=== PATIENT | male | born 1990 | race Caucasian/White ===

== ENCOUNTER 2016-11-21 13:18 | Emergency (ER) | payer OTHER ==
[2016-11-21 13:23] VITALS: BP 147/79; PULSE 62; TEMP 98.3; BMI 23.1
--- NOTE | 2016-11-21 14:14 | PDOC ---
History of Present Illness - General Chief Complaint: Injury Stated Complaint: HIT HEAD ON OBJECT Time Seen by Provider: 11/21/16 13:34 History Source: Patient - History of Present Illness Timing/Duration: reports: 1-3 hours Associated Symptoms: reports: nausea/vomiting. denies: loss of consciousness, seizures, sleepy, slurred speech, vision changes Past History - Past Medical History Allergies/Adverse Reactions: Allergies Allergy/AdvReac Type Severity Reaction Status Date / Time Penicillins Allergy Verified 11/21/16 13:24 Home Medications: Ambulatory Orders NK [No Known Home Medication] 11/21/16 Other medical history: NONE - Psycho/Social/Smoking Cessation Hx Anxiety: No Suicidal Ideation: No Smoking History: Never smoked Hx Alcohol Use: No Drug/Substance Use Hx: No Substance Use Type: None Review of Systems - Review of Systems HEENTM: No: Blurred Vision ABD/GI: Yes: Nausea. No: Vomiting Neurological: Yes: Headache, Dizziness. No: Seizure *Physical Exam - Vital Signs Last Vital Signs Temp Pulse Resp BP Pulse Ox 98.3 F 62 20 147/79 99 11/21/16 13:21 11/21/16 13:21 11/21/16 13:21 11/21/16 13:21 11/21/16 13:21 - Physical Exam General Appearance: Yes: Appropriately Dressed. No: Apparent Distress HEENT: positive: EOMI, Normal Voice, Other (atraumatic) Neck: positive: Supple Respiratory/Chest: negative: Respiratory Distress Integumentary: positive: Dry, Warm Neurologic: positive: Fully Oriented, Alert, Normal Mood/Affect, Normal Response , Motor Strength 5/5, Finger to Nose. negative: Facial Droop, Confused, Disoriented Medical Decision Making - Medical Decision Making 11/21/16 14:08 26 yo male, no sig hx, here for evaluation following head injury prior to arrival today. 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 States immediately after impact he felt pain, dizziness and nauseous, all of which has since improved. No vomiting, visual changes or loss of consciousness. Not on any blood thinners. See exam Minor head injury Well cassidy and stable w/ no focal deficits -Dc w/ concussion precautions 11/21/16 14:15 11/21/16 14:17 *DC/Admit/Observation/Transfer Diagnosis at time of Disposition: Closed head injury Qualifiers: Encounter type: initial encounter Qualified Code(s): S09.90XA - Unspecified injury of head, initial encounter - Discharge Dispostion Disposition: HOME Condition at time of disposition: Good - Patient Instructions Printed Discharge Instructions: DI for Closed Head Injury Additional Instructions: There is no evidence of serious injury at this time and it is too early to say that you will have a concussion To avoid worsening of symptoms, please rest for the next 2 days and avoid heavy exercises or too much physical activity. Avoid doing activities that need concentration or a lot of attention if they make you feel worse. Do not drink alcohol while you are still having symptoms If symptoms persists or worsen, return to the ED
== END 2016-11-21 14:16 | disposition home or self-care (01) ==
LOC: JERFT 13:18
DX: S09.8XXA Other specified injuries of head, initial encounter (principal); W22.8XXA Striking against or struck by other objects, initial encounter; Y93.89 Activity, other specified; Y92.89 Other specified places as the place of occurrence of the external cause; Y99.0 Civilian activity done for income or pay
CPT/HCPCS: 99281-25

== ENCOUNTER 2020-06-27 08:27 | Day surgery (SDC) | payer OTHER ==
[2020-06-27] MEDS ORDERED: morphine CARPU-JECT 2 MG/1 ML DISP.SYRIN IVPUSH ONE (08:37)
[2020-06-27] MEDS ORDERED: SODIUM CHLORIDE 0.9% 1000 ML INFUS.BAG IV ONE ×2 (08:37→13:45)
[2020-06-27] MEDS ORDERED: ONDANSETRON 4 MG/2 ML VIAL IVPUSH ONE (08:37)
[2020-06-27] MEDS ORDERED: morphine SULFATE 4 MG/ML VIAL ONE (09:08)
[2020-06-27] MEDS ORDERED: ACETAMINOPHEN 1000 MG/100 ML VIAL (NON FORMULARY) IVPB ONE (09:13)
[2020-06-27] MEDS ORDERED: ACETAMINOPHEN INJECTION 100 ML IVPB ONE (09:16)
[2020-06-27 09:21] LABS: HEMOGLOBIN 14.9 GM/dl (11.7-16.9); WHITE BLOOD COUNT 5.7 K/mm3 (4.0-10.8)
[2020-06-27 09:23] LABS: EPITHELIAL CELLS FEW /hpf
[2020-06-27 09:26] LABS: HEMATOCRIT 43.6 % (35.4-49); MCH 29.6 pg (25.7-33.7); MCHC 34.2 g/dl (32.0-35.9); MEAN CELL VOLUME 86.6 fl (80-96); MEAN PLT VOLUME 8.5 fl (7.5-11.1); PLATELET COUNT 244 K/MM3 (134-434); RBC 5.04 M/mm3 (4.00-5.60); RDW 11.9 % (11.9-15.9)
[2020-06-27] MEDS ORDERED: TAMSULOSIN HCL 0.4 MG CAP PO ONE (09:33)
[2020-06-27 09:36] LABS: ALBUMIN 4.3 g/dl (3.4-5.0); BILIRUBIN,TOTAL 0.9 mg/dl (0.2-1); CALCIUM 9.3 mg/dl (8.5-10); CREATININE 1.1 mg/dl (0.55-1.3); POTASSIUM 4.1 mmol/L (3.5-5.1); TOT PROT 6.6 g/dl (6.4-8.2)
[2020-06-27 10:10] LABS: PLATELET ESTIMATE ADEQUATE
[2020-06-27] MEDS ORDERED: KETOROLAC TROMETHAMINE 30 MG/1 ML VIAL IVPUSH ONE (10:59)
[2020-06-27] MEDS ORDERED: TAMSULOSIN HCL 0.4 MG CAP ONE (11:03)
[2020-06-27] MEDS ORDERED: KETOROLAC TROMETHAMINE 30 MG/1 ML VIAL ONE ×3 (11:03→17:29)
[2020-06-27] MEDS ORDERED: FAMOTIDINE 20 MG/50 ML IVPB 20 MG/50 ML MG IVPB ONE ×2 (13:45→14:01)
[2020-06-27 15:53] VITALS: BMI 24.1
[2020-06-27] MEDS ORDERED: MIDAZOLAM HCL 2 MG/2 ML SINGLE DOSE VIAL ONE (16:45)
[2020-06-27] MEDS ORDERED: PROPOFOL 20 ML ONE (16:45)
[2020-06-27] MEDS ORDERED: DEXAMETHASONE SOD PHOSPHATE 4 MG/1 ML VIAL ONE ×2 (16:46→17:29)
[2020-06-27] MEDS ORDERED: LIDOCAINE HCL/PF 2% SDV 5ML VIAL ONE (16:46)
[2020-06-27] MEDS ORDERED: ceFAZolin SODIUM 1 GM VIAL ONE (17:29)
[2020-06-27] MEDS ORDERED: ceFAZolin SODIUM 1 GM VIAL IVPB ONE (17:31)
[2020-06-27] MEDS ORDERED: GENTAMICIN SO4 80 MG/2 ML VIAL IVPB ONE (17:32)
[2020-06-27] MEDS ORDERED: DIGOXIN 0.5 MG/2 ML AMPUL ONE (17:35)
[2020-06-27] MEDS ORDERED: ONDANSETRON 4 MG/2 ML VIAL IVPUSH PRN (18:07)
[2020-06-27] MEDS ORDERED: oxyCODONE HCL 5 MG TABLET PO PRN (18:07)
[2020-06-27] MEDS ORDERED: LACTATED RINGERS SOLUTION 1,000 ML IV SCH (18:15)
[2020-06-27] MEDS ORDERED: oxyCODONE HCL 5 MG TABLET ONE (19:09)
[2020-06-27 19:46] VITALS: BP 115/65; PULSE 67; TEMP 98.1
== END 2020-06-27 19:46 | disposition home or self-care (01) ==
LOC: FER 08:27 → FASUSAT 11:18 → FM/S 11:59 → UNDOADMIN 11:59 → FASUSAT 19:46 → UNDODISIN 19:46
PROVIDERS: ATTEND Urology
PROC: 3E033GC Introduction of Other Therapeutic Substance into Peripheral Vein, Percutaneous Approach (ICD-10-PCS; principal; 2020-06-27 13:30)
DX: N20.0 Calculus of kidney (principal); N30.90 Cystitis, unspecified without hematuria
CPT/HCPCS: 36415; 74176-TC; 76000-TC-FY; 80053; 81003; 81015; 82360; 85025; 87086; 88300-TC; 94760; 99285-25; C9803; J0131; U0003; U0005

== ENCOUNTER 2023-08-24 23:02 | Emergency (ER) | payer SELFPAY ==
[2023-08-24 23:11] VITALS: BP 129/83; PULSE 59; RESP 16; TEMP 97.7; BMI 25.0
[2023-08-24] MEDS ORDERED: DIPHTH,PERTUSS(ACELL),TET 0.5 ML DISP.SYRIN IM ONE (23:49)
[2023-08-24] MEDS: DIPHTH,PERTUSS(ACELL),TET 0.5 ML DISP.SYRIN IM ONE (23:59)
== END 2023-08-25 00:09 | disposition home or self-care (01) ==
LOC: FER 23:02
PROC: 0HQGXZZ Repair Left Hand Skin, External Approach (ICD-10-PCS; principal; 2023-08-24)
PROC: 3E0234Z Introduction of Serum, Toxoid and Vaccine into Muscle, Percutaneous Approach (ICD-10-PCS; 2023-08-24)
DX: S61.012A Laceration without foreign body of left thumb without damage to nail, initial encounter (principal); W26.8XXA Contact with other sharp object(s), not elsewhere classified, initial encounter; Z23 Encounter for immunization
CPT/HCPCS: 90715; 99282-25